=== PATIENT | female | born 1935 | race Caucasian/White ===

== ENCOUNTER 2017-10-26 08:30 | Inpatient (IN) | payer MEDICARE, OTHER ==
[~2017-10-26] VITALS: Ht 165.1 cm; Wt 111.2 kg
[~2017-10-26 08:30] MED LIST: ASPIRIN EC81 MG PO; CARVEDILOL25 MG PO; CHLORTHALIDONE25 MG PO; CLONAZEPAM0.5 MG PO; CORICIDIN HBP1 EAC2 PO; COZAAR50 MG PO; CULTURELLE1 EACH PO; ECHINACEA & GO1 EACH PO; FLAGYL500 MG PO; GLUCOPHAGE500 MG PO; KRILL OIL500 MG PO; LEVAQUIN750 MG PO; LOSARTAN POTASS50 MG PO; METFORMIN HCL500 MG PO; PROAIR HFA8.5 GM IH; SURESTEP PRO1 EA VI; VENTOLIN HFA18 GM IH; VERAPAMIL ER120 M1 PO; VERAPAMIL HCL120 MG PO; WARFARIN SODIUM5 MG PO; ZITHROMAX250 MG PO; [UNRECOGNIZED DRUG - OTHER] PO
[2017-10-26] MEDS ORDERED: FUROSEMIDE20 MG PO (08:47)
[2017-10-26] MEDS ORDERED: CLONAZEPAM0.5 MG PO (08:47)
[2017-10-26] MEDS ORDERED: IRBESARTAN150 MG PO (08:48)
--- NOTE | 2017-10-26 12:51 | NUR ---
pt arrived to floor with two family members at 1220. transferred to bed with 4PA. 2l [address] 96%. VSS. sample cup provided to collect sputum sample and signs posted on doors to collect urine and sputum sample. daily weight sign posted on door. Tele applied by MICAH. Lunch ordered for patient.
[2017-10-26] MEDS ORDERED: VERAPAMIL ER120 M1 PO (15:46)
--- NOTE | 2017-10-26 15:58 | NUR ---
PT SLEEPING COMFORTABLY SITTING UP IN BED. RUNNING IVF CONCURRENTLY WITH MAG RIDER NOW.
--- NOTE | 2017-10-26 16:36 | NUR ---
NEW ED ADMIT TODAY. ARRIVED AROUND NOON. 2L 02 VIA AK. BASELINE USES WALKER AT HOME. 2PA PIVOT TO COMMODE. INCONTINENT. ATTENDS IN PLACE. SKIN BREAKDOWN ON BUTTOCK FROM IMMOBILITY AT HOME. POOR APPETITE. 1L LR INFUSED TODAY. RECEIVED TOTAL OF 4GM MAGNESIUM RIDER. NEED SPUTUM AND URINE SAMPLE SENT. TELE [address] PRODUCTIVE HARSH COUGH. BLISTERS AND EDEMA ON BILAT LE D/T VASCULAR ISSUES.
--- NOTE | 2017-10-26 17:00 | NUR ---
THE NURSE AND I TRANSFERED HER FROM THE BED TO THE BSC AND CHANGED HER AND PUT HER BACK TO BED.
--- NOTE | 2017-10-26 18:41 | NUR ---
PT RESTING COMFORTABLY IN BED VISITING WITH FAMILY AT THIS TIME. DENIES OTHER NEEDS. NO ACUTE CHANGES. CALL LIGHT WITHIN REACH.
--- NOTE | 2017-10-26 19:00 | NUR ---
SHIFT REPORT RECEIVED. PATIENT RESTING IN BED. COARSE COUGH NOTED. PATIENT UNABLE TO COUGH UP ANY SPUTUM AT THIS TIME. O2 SAT 96%. IV BOLUS INFUSING PER ORDER, SITE WNL. IV EDUCATION PROVIDED. PATIENT DENIES ANY NEEDS AT THIS TIME. CALL LIGHT IN REACH.
--- NOTE | 2017-10-26 19:45 | NUR ---
SECOND BOLUS STARTED PER ORDERS. IV SITE WNL. PATIENT DENIES TOILETING NEEDS. AGREES TO ATTEMPT TO VOID AFTER BOLUS FINISHES IN ONE HOUR.
--- NOTE | 2017-10-26 21:00 | NUR ---
PATIENT FELT THE URGE TO USE THE BATHROOM. 2PA W/FWW UP TO BSC. PATIENT HAD 150ML URINE OUT AND SMALL BM. MD MADE AWARE OF URINE OUTPUT AND HE REQUESTED SHE BE BLADDER SCANNED. PATIENT HAS TWO AREA OF OPEN SKIN ON HER RIGHT BUTTOCK, BOTH COVERED WITH AN ALYVEN. BARRIER CREAM APPLIED, PATIENT REPORTS HER OLINDA/BOTTOM AREA IS VERY SORE. PATIENT RETURNED TO BED. ATTEMPTS TO BLADDER SCAN HER WITH ASSIST OF BODY WELDER WERE UNSUCESSFUL. MD AWARE, STATES "LETS JUST WATCH HER". IV FLUID BOLUS CONTINUES TO INFUSE, SITE WNL. LUNGS ARE COURSE THROUGHOUT, COUGH IS LOOSE BUT NOT PRODUCTIVE. PATIENT TOLERATING 2L NC AT THIS TIME. HEAD OF BED ELEVATED GREATER THAN 45 DEGREES. SCDS IN USE. ICE WATER PROVIDED. PATIENT RESTING, DENIES FURTHER NEEDS. CALL LIGHT IN REACH.
--- NOTE | 2017-10-26 22:30 | NUR ---
PATIENT'S BOLUS FINISHED. PATIENT SL BY METEOROLOGICAL AIDE.
--- NOTE | 2017-10-27 01:05 | NUR ---
IVPB OF K+ STARTED. EXPLAINED INDICATION TO PATIENT, SHE VERBILIED UNDERSTANDING. PATIENT REPORTS FEELING SORE FROM SITTING IN THE BED. SHE FREQUENTLY SLEEPS IN A RECLINER AT HOME. ASSISTED PATIENT UP TO THE BSC. ASSITSTED WITH OLINDA CARE AND BARRIER CREAM APPLIED. ASSISTED PATIENT TO THE RECLINER WHICH SHE REPORTS IS MORE COMFORTABLE AND PROVIDED PRN TYLENOL. PATIENT HAS AUDIBLE WHEEZES AND THINKINGS A NEB TREATMENT MIGHT HELP HER GET HER BREATHING UNDER CONTROL. RT CALLED TO ASSESS, NEB PROVIDED. PATIENT TOLERATING 2L NC, O2 SAT 94%. CALL LIGHT IN REACH. NO OTHER NEEDS AT THIS TIME.
--- NOTE | 2017-10-27 04:53 | NUR ---
PATIENT SLEPT ON AND OFF THROUGHOUT THE SHIFT. LOW URINE OUTPUT, ABOUT 150ML Q4HR. MD AWARE. ENCOURAGE ORAL FLUIDS. 2L NC, PRN NEBS. LOOSE COUGH. UNABLE TO COLLECT SPUTUM SAMPLE AT THIS TIME. LUNG SOUNDS ARE COARSE THROUGHOUT WITH OCCATIONAL WHEEZING. UP TO BSC, 1-2PA W/FWW. SCDS. TELE #10, IRREGULAR HR. ACCU CHECKS WMHS, ADA DIET. OPEN AREAS ON BUTTOCKS COVERED W/ALYVEN & BARRIER CREAM TO OLINDA AREA. WOUND CONSULT ORDERED.
--- NOTE | 2017-10-27 06:40 | NUR ---
PATIENT AWAKE THIS MORNING. STATES SHE SLEPT MUCH BETTER IN THE RECLINER. PATIENT UP ON STANDING SCALE FOR DAILY WT. THEN USED BSC. ALYVEN ON LOWER SITE OF OPEN AREAS WAS CHANGED. OLINDA CARE DONE. AREA DRIED AND BARRIER CREAM APPLIED. FRESH PAD IN PLACE. PATIENT RETURNED TO RECLINER. LAB IN ROOM. CALL LIGHT IN REACH.
--- NOTE | 2017-10-27 08:16 | NUR ---
MORNING ASSESSMENT AND MEDICAITONS DUE. THIS RN TO BEDSIDE. PT UP TO CHAIR EATING BREAKFAST, MINIMAL APPITITE. O2 AT 2L BY NC IN PLACE. PT REPORTS 3/10 PAIN IN HER RIGHT SIDE WITH COUGHING. SEE MAR FOR MEDIATION GIVEN. ASSESSMENT DONE. MEDICATIONS GIVEN. PT ASSISTED UP TO COMODE. WOUNDS ASSESSED, ALLEVYN INTACT. BARRIER CREAM APPLIED. PT ABLE TO VOID 100ML. PT BACK TO CHAIR. GLUCERNA PROVIDED. CALL LIGHT WITHIN REACH. SCD'S ON. NO ADITIONAL REQUESTS OR COMPALINTS AT THIS TIME.
--- NOTE | 2017-10-27 08:22 | NUR ---
CRITICAL LAB [facility]UE CALLED TO NURSING STATION. NOTIFIED DR. ADAIR.
--- NOTE | 2017-10-27 12:26 | NUR ---
THIS RN TO ROOM FOR ROUNDS WITH . ORDERS PEÑALOZA CATHETER PLACEMENT AND MEDICAITONS. PEÑALOZA PLACED PER PROTCOL. 100ML CLEAR YELLOW URINE RETURN. MEDICATIONS GIVEN ORDERED (SEE MAR). CBG - 154, 1 UNIT INSULIN GIVE. PT UP TO CHAIR FOR LUNCH. CALL LIGTH WITHIN REACH. 2L OR BY NC IN PLACE. NO ADDITIONAL REQUESTS OR COMPALINTS AT THIS TIME.
--- NOTE | 2017-10-27 13:50 | NUR ---
TYLENOL DUE. THIS RN TO BEDSIDE. PT RESTING WITH EYES CLOSED. PT AWAKENS TO VOICE AND MOVEMENT IN ROOM. TYLENOL GIVEN (SEE MAR). WATER REFILLED. PT OFFERED TO GET BACK TO BED. PT DECLINES STATING "I'M OK IN THE CHAIR." PT
[2017-10-27] MEDS ORDERED: COUMADIN5 MG PO (14:13)
--- NOTE | 2017-10-27 14:18 | NUR ---
Medications reconciled using pharmacy records and patient interview
--- NOTE | 2017-10-27 14:18 | NUR ---
pt is sitting up in chair with feet elevate and calllight in reach. pt did not need anything at the moment. BP was low will notify nurse
--- NOTE | 2017-10-27 14:21 | NUR ---
Warfarin per pharmacy. Patient to receive 5mg today. Per home dosing, she takes 5mg Sunday's and 2.5mg all other days, but as she missed yesterday's dose, a 5mg dose for today is ordered.
--- NOTE | 2017-10-27 14:50 | NUR ---
THIS RN TO ROOM TO CHECK ON PT. PT UP IN CHAIR. PT DENIES PAIN. PT STATES HER "BOTTOM IS SOAR." PT ENCOURAGED TO GET UP FOR A WALK OR TO NEW POSITIONS. PT STATES SHE IS REPOSITIONING HERSELF. NO ADDITIONAL REQUESTS OR COMPLAINTS AT THIS TIME.
--- NOTE | 2017-10-27 16:24 | NUR ---
LOGISTICS SUPERVISOR RECIVED CALLED FROM . THIS RN NOTIFIED. STATES HE BELIVES LAB DRAW RESULTS ARE IN ERROR. STAT REDRAW ORDERED. LAB NOTIFIED. LAB TECHNITIAN TO BEDSIDE. LABS REDRAWN. MD NOTIFIED OF NEW RESULTS.
--- NOTE | 2017-10-27 17:04 | NUR ---
AFTERNOON ASSESSMENT AND MEDICATIONS DUE. THIS RN TO BEDSIDE. CBG TAKEN = 125. PT DENIES PAIN. PT UP IN CHAIR AND READY FOR DINNER. ASSESSMENT DONE. PT REPORTS THAT SHE FEELS SHE CAN BREATH "BETTER." MEDICATION GIVEN. PT EATING DINNER. CALL MADELYN WALKER.
--- NOTE | 2017-10-27 17:20 | NUR ---
pt is sitting up in chair with feet elevated, pt did not need anything at the moment
--- NOTE | 2017-10-27 18:24 | NUR ---
PATIENT CALL LIGHT ON. STANDBY FWW ASSIST TO COMMODE. PATIENT HAD SMALL BOWEL MOVEMENT. DRESSINGS ON PATIENT'S RIGHT BUTTOCKS WERE CHANGED AND NEW BARRIER CREAM WAS APPLIED. THE WOUNDS WERE RED. PATIENT WAS ASSISTED BACK TO BED. PATIENT RESTING WITH AT BEDSIDE. CALL LIGHT WITHIN REACH AND BEDRAILS RAISED. NO FURTHER REQUESTS AT THIS TIME.
--- NOTE | 2017-10-27 18:31 | NUR ---
PT HERE FOR PNEUMONIA. 1PA, FWW. ADA DIET, CBG CHECKS AND SS INSULIN. DAILY WEIGHT. TELE #10. IV LASIX GIVEN TODAY. PEÑALOZA CATHETER PLACED. NEW ALLEVYN DRESSINGS APPLIED TO BUTTOX PRESSURE ULCERS X2. LABS THIS AM AND THIS PM, NEW LAB DRAW DONE AT 1640. EKG DONE TODAY. PRN TYLENOL GIVEN TODAY FOR RIGHT SIDED PAIN WITH COUGH. 2L O2 BY NC. SL, RFA. USES CALL LIGHT APPROPRIATLY.
--- NOTE | 2017-10-27 19:05 | NUR ---
SHIFT REPORT RECEIVED. PATIENT RESTING IN BED VISITING WITH HER . SHE REPORTS FEELING BETTER THIS EVENING THAN LAST, LESS COUGHING. NO NEEDS AT THIS TIME.
--- NOTE | 2017-10-27 19:45 | EKG ---
[facility] [address] [place] [address] Signed Ventricular-paced rhythm with occasional premature ventricular complexes Abnormal ECG No previous ECGs available Confirmed by GERARDO STEINBERG MD ([id number]) on 10/27/2017 7:44:25 PM Electronically Signed By: GERARDO STEINBERG MD 10/27/17 1945 PATIENT NAME: BRITT SARAVIA Electrocardiogram DATE OF : 35 PHYSICIAN: GERARDO STEINBERG MD REPORT #: [id number] REPORT IS CONFIDENTIAL AND NOT TO BE RELEASED WITHOUT AUTHORIZATION
--- NOTE | 2017-10-27 19:49 | EKG ---
[facility] [address] [facility] [address] [place] [address] Signed Atrial fibrillation with frequent ventricular-paced complexes Nonspecific intraventricular block Lateral infarct , age undetermined Abnormal ECG When compared with ECG of 26-OCT-2017 10:07, (Unconfirmed) premature ventricular complexes are no longer present Vent. rate has increased BY 6 BPM Confirmed by GERARDO STEINBERG MD ([id number]) on 10/27/2017 7:48:38 PM Electronically Signed By: GERARDO STEINBERG MD 10/27/17 1949 PATIENT NAME: BRITT SARAVIA Electrocardiogram DATE OF : 35 PHYSICIAN: GERARDO STEINBERG MD REPORT #: [id number] REPORT IS CONFIDENTIAL AND NOT TO BE RELEASED WITHOUT AUTHORIZATION
--- NOTE | 2017-10-27 20:08 | NUR ---
IV LASIX PROVIDED PER ORDERS. PATIENT VISITING WITH FRIENDS AND FAMILY. APPEARS TO BE IN GOOD SPIRITS. DENIES ANY NEEDS. DRINKS OFFERED TO VISITORS WHICH THEY DECLINED.
--- NOTE | 2017-10-27 20:45 | NUR ---
HELPED PT TO COMMODE AND BACK TO BED. PT DENIES FURTHER NEEDS AT THIS TIME. CALL LIGHT IS WITHIN REACH.
--- NOTE | 2017-10-27 21:00 | NUR ---
EVENING BLOOD GLUCOSE CHECKED, 1 UNIT INSULIN PER SS ORDERS. PO SODIUM REPLACEMENT PROVIDED PER ORDERS, PATIENT EDUCATION PROVIDED VERBALLY. PATIENT IS AAOX2. VS STABLE, TOLERATING 2L NC WITH O2 SAT 96%. COUGH HAS BECAME LESS FREQUENT, NONPRODUCTIVE BUT LOOSE SOUNDING. ENCOUAGE CPT & IS. LUNG SOUND CLEAR IN UPPER LOBES BILATERALLY, CRACKLES IN THE BASES UP TO THE MID LOBES BILATERALLY. ABD IS SOFT, NONTENDER. LARGE BM TONIGHT. APPETITE IMPROVED, NO NAUSEA. GENERALIZED EDEMA NOTED IN TOSHIA LOWER EXTREMITIES. SCDS IN USE. PATIENT SITTING IN BED WITH HOB GREATER THAN 45 DEGREES. PEÑALOZA DRAINING DARK YELLOW URINE WITH SEDIMENT, OUTPUT IMPROVED WITH LASIX. PATIENT DENIES FURTHER NEEDS.
--- NOTE | 2017-10-27 22:00 | NUR ---
PEÑALOZA EMPTIED. 800ML OUTPUT RECORDED WHICH IS MUCH IMPROVED FROM OUTPUT THROUGHOUT THE DAY. PATIENT IS RESTING IN BED. DENIES ANY NEEDS. CALL LIGHT IN REACH.
--- NOTE | 2017-10-28 02:30 | NUR ---
PEÑALOZA EMPTIED, ANOTHER 800MLS OF OUTPUT. URINE IS CLEAR YELLOW, IMPROVED IN APPEARANCE FROM PREVIOUSLY. PATIENT REPORTS FEELING "OKAY". COUGH IS REDUCED BUT STILL OCCATIONAL. RIGHT SIDED PAIN FROM MUSCLE STRAIN, PRN TYLENOL PROVIDED. PATIENT REPOSITIONED IN THE BED WITH ASSIST OF SECOND RN. DENIES FURTHER NEEDS. CALL LIGHT IN REACH.
--- NOTE | 2017-10-28 06:35 | NUR ---
PATIENT SLEPT BETTER LAST NIGHT THAN PREVIOUS. IV LASIX AT START OF SHIFT, 1925MLS URINE OUTPUT THIS SHIFT. THIS IS REFLECTED IN 2LB WEIGHT LOSS SINCE YESTERDAY. CRACKLES IN LUNGS HAVE IMPROVED, BUT FINE CRACKLES STILL NOTED IN TOSHIA BASES. 2L NC, ATTEMPTS TO TITRATE TO 1L NC. PRODUCTIVE COUGH CONTINUES. PEÑALOZA IN PLACE. 1PA UP TO BSC. FLUID RESTRICTION, ADA DIET. TELE 10, IRREGULAR HR IN THE 70-80'S. DRESSING ON BUTTOCKS CHANGED THIS AM.
--- NOTE | 2017-10-28 06:46 | NUR ---
PATIENT UP TO THE BATHROOM. LARGE STOOL. OLINDA CARE PERFORMED. NEW LAYVENS PLACED. BARRIER CREAM APPLIED. DAILY WT DONE. PATIENT RETURNED TO BED. TITRATE O2 TO 1L NC. WILL REASSESS. REVIEWED FLUID RESTRICTION WITH THE PATIENT. SHE DENIES ANY NEEDS AT THIS TIME.
--- NOTE | 2017-10-28 07:51 | NUR ---
MORNING ASSESSMENT AND MEDICATIONS DUE. THIS RN TO BEDSIDE. RT AT BEDSIDE FINISHING NEB TX. PT REQUESTED THIS NEB TREATMENT DUE TO "MY LUNGS FEEL TOO DRY OR SOMETHING." RESPIRATORY CARE EDUCATION DONE. PT VERBALIZES UNDERSTANDING. PT ON ROOM AIR. MAINTAINING O2 SATURATION ABOVE 90% WHILE RESTING BUT DROPS TO 86% WHEN TRANSFERING TO CHAIR. O2 AT 2L BY NC WILL BE USED DURING AMBULATION. PT ON 1L O2 BY NC AT THIS TIME. O2 AT 93%. PT ASSISTED UP TO COMODE FOR BM. PEÑALOZA DRAINING TO GRAVITY. PT TRANSFERS TO CHAIR. ALLEVYN REMAIN IN PLACE OVER PRESURE ULCERS. ASESSMENT DONE. MEDICATIONS GIVEN (SEE MAR). SCD'S IN PLACE. PT AWAITING BREAKFAST. NO ADDITIONAL REQUESTS OR COMPLAINTS AT THIS TIME.
--- NOTE | 2017-10-28 10:18 | NUR ---
pt asked to use bedside commode helped pt to stand and pivot to the commode. nurse wade and shell patterson are in room now and will finish up with the pt.
--- NOTE | 2017-10-28 10:38 | NUR ---
PT COMPLAINING OF PAIN AT IV SITE AFTER ABX INFUSION. PIV ASSESSED, INFLAMATION NOTED. PT CONTINUES TO REPORT PAIN WITH FLUSH. PIV DC'D PER PROTOCOL BY RADHA DE LEON. GAUZE AND COBAN APPLIED. NEW PIV INCERTED PER PROTOCOL. BLOOD REUTRN NOTED WITH IV START. PIV SL AT THIS TIME. ALCOHOL CAPS APPLIED. PT UP TO CHAIR. NO REQUESTS OR COMPLAINTS AT THIS TIME. CALL LIGHT WITHIN REACH.
--- NOTE | 2017-10-28 11:27 | NUR ---
THIS RN TO ROOM TO CHECK ON PT AND HER WORK WITH PHYSICAL THERAPY. PT UP WITH PHYSICAL THERAPY, THERAPIST REPORTS PT WAS ABLE TO AMBULATED 18 FEET AROUND ROOM. PT CONTINUES TO REPORTS SOB WITH AMBULATION AND IS RELUCTANT TO WALK OUTSIDE OF ROOM. WILL TRY AGAIN THIS AFTERNOON. PT WEANED TO ROOM AIR. O2 SATURATION REMAINING ABOE 92%. MONITORED BY THIS RN FOR 10 MINUTES TIME. PHYSICAL THERPIST STATES SPOT CHECK DURING AMBULATION SOWED PT AT 96%. PT REMAINS ON ROOM AIR. STATES SHE WANTS A NAP BEFORE LUNCH. PT UP IN CHAIR. NO ADDITIONAL REQUESTS OR COMPLAINTS. CALL LIGHT WITHIN REACH.
--- NOTE | 2017-10-28 11:56 | NUR ---
FOCUSSED ASSESSMENT AND MEDICATION DUE. THIS RN TO BEDSIDE. UP TO CHAIR, EATING LUNCH. FOCUSSED ASSESSMENT DONE. MEDICATIONS GIVEN (SEE MAR). PT REPORTS 0/10 PAIN "JUST OCCATIONALL IT HURTS WITH COUGHING." "JUST A REMINDER" PT STATES SHE DOES NOT NEED MEDICATION AT THIS TIME. PT CONTINUES ON ROOM AIR. PT CONTINUES EATING LUNCH. PT ADHERING WELL TO FLUID RESTRICTION. NO ADDITIONAL REQUESTS OR COMPLAINTS. CALL LIGHT WITHIN REACH.
--- NOTE | 2017-10-28 14:00 | NUR ---
pt resting in chair. pt needed nothing at this time. pt has call light within reach.
--- NOTE | 2017-10-28 14:33 | NUR ---
MD ORDERED REMOVAL OF PEÑALOZA CATHETER. CATHETER REMOVED PER PROTOCOL. 225 ML URINE REMOVED FROM PEÑALOZA. YELLOW WITH SOME SEDIMENT. PATIENT USING ACAPELLA. PATIENT EDUCATED ON FLUID RESTRICTION. PATIENT RESTING IN CHAIR WITH SCD'S RUNNING. CALL LIGHT IN REACH. NO COMPLAINTS OR REQUESTS AT THIS TIME.
--- NOTE | 2017-10-28 14:40 | NUR ---
THIS RN IN ROOM FOR CATHETER REMOVAL WITH RADHA DE LEON. NOTE REVIWED AND ACKNOWLEDGED. THIS RN IN AGREEMENT
--- NOTE | 2017-10-28 15:28 | NUR ---
MEDICATION DUE. PATIENT VISITING WITH FRIENDS. MEDICATION GIVEN (SEE MAR). PATIENT REQUESTED ASSISTANCE TO COMMODE. PATIENT REFUSED OFFER TO AMBULATE STATED "VISITING MADE ME TIRED". PATIENT AGREED TO AMBULATE IN 30 - 60 MINUTES. PATIENT REPORTS BREATHING IS EASIER AND SHE REPORTS USING ACAPELLA. PATIENT VOIDED 400 ML URINE WITH SMALL BM. PATIENT REPORTED FEELING "SHORT OF BREATH" AFTER RETURNING TO CHAIR. OXYGEN SAT 92% PATIENT REPORTED FEELING "RECOVERED". PATIENT RESTING IN CHAIR, SCD'S IN PLACE. CALL LIGHT WITHIN REACH.
--- NOTE | 2017-10-28 17:09 | NUR ---
AFTERNOON ASSESSMENT, NOTES AND MEDICATIONS DONE BY RADHA DE LEON. THIS RN PRESENT FOR ASSESMENTS AND MEDICATIONS. CHARTING REVIWED AND AGREED WITH.
--- NOTE | 2017-10-28 17:29 | NUR ---
RETURNED TO PATIENT ROOM SCHEDULED TO ASSIST WITH AMBULATION. PATIENT ASSISTED TO COMMODE, URINE VOIDED. PATIENT RETURNED TO CHAIR FOR SHORT REST. PATIENT AMBULATED WITH 4WW AND SBA 10 FEET OUTSIDE ROOM AND BACK TO CHAIR. OXYGEN SAT OF 95% ON ROOM AIR. PATIENT COMPLAINED OF BACK PAIN. PRN AND SCHEDULED MEDICATIONS GIVEN (SEE MAR). PATIENT ASSESSMENT DONE. PATIENT EDUCATION DONE, PATIENT VERBALIZED UNDERSTANDING. PATIENT SITTING IN CHAIR EATING, AT SIDE. SCD'S ON, CALL LIGHT WITHIN REACH.
--- NOTE | 2017-10-28 17:49 | NUR ---
pt up in chair resting with feet elevated. pt visiting. call light in reach.
--- NOTE | 2017-10-28 18:21 | NUR ---
PT HERE WITH PNEUMONIA. 1PSBA, FWW. 1000ML FLUID RESTRICTION. ADA DIET WITH CBG CHECKS AND SS INSULIN. TELE #10. PT WEANED TO ROOM AIR TODAY. ANABELA REDDING'Tuan. VOIDING QUANTITY SUFFICENT. CUMADIN GIVEN TODAY. PRN TYLENOL GIVEN FOR COUGH AND BACK PAIN. ALLEVYN REMAIN IN PLACE OVER R BUTTOX WOUNDS. ENCOURAGE AMBULATION TOLDERATED. ACCAPELLA AND IS USE ENCOURAGED. PT USING CALL LIGHT APPROPRAITLY.
--- NOTE | 2017-10-28 19:10 | NUR ---
RECEIVED REPORT FROM RADHA MCKEON. PT LAYING IN BED. 1 PERSON SBA WITH FWW. ON TELE 10. PT HAS 2 ULCERS ON RIGHT BUTTOCKS, DRESSINGS INTACT. ON A ADA DIET WITH 1000 ML FLUID RESTRICTION. TITRATED TO ROOM AIR TODAY FROM 2 LITERS.
--- NOTE | 2017-10-28 20:59 | NUR ---
ROUNDED CHARGE. PATIENT IS RESTING IN BED. PATIENT DENIES ANY COMMENTS, QUESTIONS OR CONCERNS AT THIS TIME. CALL LIGHT IN REACH.
--- NOTE | 2017-10-28 22:33 | NUR ---
ASSESSMENT COMPLETE. DIMINISHED LUNG SOUNDS LEFT LOWER LOBE. MILD PITTING EDEMA BILATERALLY IN FEET, PULSES WEAK BLE. IV SALINE LOCKED WNL. UP TO BEDSIDE COMMODE WITH SBA AND FWW, VOID AND BM, PT TOLERATED WELL ON ROOM AIR, DENIES SOB. CO OF PAIN IN RIBS DUE TO COUGHING, /. EDUCATED ON PRN MEDICATION, PT DECLINES HEAT PACK. ASSISTED TO REPOSITION, SCD'S ON AND CALL LIGHT IN REACH.
--- NOTE | 2017-10-28 23:05 | NUR ---
PRN PAIN MEDICATIONS GIVEN FOR PAIN 05/26. EDUCATED PT ON FLUID RESTRICTION.
--- NOTE | 2017-10-28 23:22 | NUR ---
RESPONDED TO CALL LIGHT. PT REQUESTING A BREATHING TREATMENT. RT CALLED AND WILL BE COMING TO FLOOR TO COMPLETE TREATMENT.
--- NOTE | 2017-10-29 00:57 | NUR ---
RESPONDED TO CALL LIGHT. PT QUESTIONED IF THERE WAS ANYTHING ELSE ORDERED THAT COULD HELP HER BREATHE EASIER. CHECKED O2 STATS, 93% ON ROOM AIR.
--- NOTE | 2017-10-29 01:10 | NUR ---
CALL LIGHT ANSWERED, PT C/O SOB, SATURATIONS WNL ON RA. LUNGS COARSE ON EXPIRATION THROUGHOUT, DIMINISHED LLL. BREATHING IS NON-LABORED. PT DEMONSTRATES IS AND CPT USE, COUGHING, NON-PRODUCTIVE. CALL LIGHT IN REACH. RT DANN PHONED, TO ASSESS PT.
--- NOTE | 2017-10-29 01:34 | NUR ---
PHONE CALL TO MD, NOTIFIED OF PT ANXIETY REGARDING BREATHING, ORDER FOR ONE TIME MUCINEX DOSE, REPEATED BACK.
--- NOTE | 2017-10-29 04:04 | NUR ---
PT SLEEPING IN BED. BREATHING EVEN AND UNLABORED. CALL LIGHT IN REACH.
--- NOTE | 2017-10-29 06:04 | NUR ---
ASSESSMENT COMPLETE. CRACKLES IN BILATERAL LOWER LOBES. PT C.O. COUGHING AND NOT BEING ABLE TO SLEEP. PT STATES, "MUSINEX DID NOT HELP". PT DENIES PAIN AT THIS TIME. PT IS SITTING UP IN BED WITH CALL LIGHT IN LAP. GIVEN ICE WATER, NO FURTHER NEEDS AT THIS TIME.
--- NOTE | 2017-10-29 06:14 | NUR ---
PT SLEPT POORLY THROUGHOUT NIGHT WITH PERSISTENT COUGH. PT WAS ANXIOUS AND RECIEVED PRN PAIN MEDICATIONS AND RESPIRATORY TREATMENTS. O2 SATURATION SPOT CHECKS WERE CONSISTENTLY IN THE MID 90'S. BILATERAL LOWER LOBES HAVE CRACKLES AND ARE DIMINISHED. PT HAS MINIMAL BILATERAL EDEMA ON HER FEET AND SHINS. PT USED CALL LIGHT APPROPRIATELY. PT DID NOT HAVE C.O PAIN THIS MORNING AND DENIED NEEDING PRN PAIN MEDS. ON TELE 10. SBA LEEW.
--- NOTE | 2017-10-29 08:15 | NUR ---
PATIENT UP IN CHAIR. WARM WASHCLOTH PROVIDED. LINENS CHANGED. NO FURTHER NEEDS AT THIS TIME. CALL LIGHT IN REACH.
--- NOTE | 2017-10-29 08:52 | NUR ---
PT CALLED FOR ASSISTANCE TO RESTROOM. AMB 1PA WITH WALKER TO BATHROOM. VOIDED WITHOUT DIFFICULTY. PT AMB TO RECLINER AFTERWARDS TO EAT BREAKFAST. LINENS CHANGED BY SERGIO OBRIEN. PT DENIES PAIN OR NAUSEA, STATES "I'M TIRED OF THIS COUGH." NO OTHER CONCERNS. LUNGS COURSE WITH SOME EXPIRATORY WHEEZES NOTED, REGULAR MOIST COUGH WELL. PT DENIES ANY DIFFICULTY BREATHING OR SOB. 2+ PITTING EDEMA OF BILATERAL FEET AND 1+ OF BILATERAL LOWER LEGS. PT ALERT AND ORIENTED. CALL LIGHT WITHIN REACH.
--- NOTE | 2017-10-29 10:00 | NUR ---
PATIENT SITTING IN RECLINER, VISITING. SHE JUST ORDERED LUNCH. PATIENT SAID SHE IS EATING A LITTLE BETTER NOW. FOR THE PAST 3 WEEKS SHE DIDN'T CARE IF SHE ATE OR NOT. SHE AND HER EAT A FRIED EGG AND PIECE OF TOAST FOR BREAKFAST. I EXPLAINED TO HER WHAT FOODS CONTAIN PROTEIN AND PROTEIN ALONG WITH GOOD QUALITY CALORIES WILL HELP THE WOUND ON HER BACKSIDE HEAL. SHE DIDN'T KNOW THAT. SHE LIKES MILK, YOGURT, CHEESE. THEY EAT A LOT OF CHICKEN AND HAMBURGER. I SUGGESTED SALMON, TUNA, AND TURKEY FOR OTHER HIGH QUALITY PROTEIN CHOICES. I REMINDED HER TO EAT PROTEIN FOODS SPREAD THROUGHOUT THE DAY, NOT ALL AT ONCE. SHE SAID SHE WILL KEEP THAT IN MIND. WILL CONTINUE TO MONITOR.
--- NOTE | 2017-10-29 10:32 | NUR ---
PT AMB A SHORT DISTANCE IN HALLWAY WITH P.T. AND WALKER, REQUIRED A SHORT BREAK D/T SOB. AMB BACK TO ROOM AND SITTING UP IN RECLINER. CALL LIGHT WITHIN REACH.
[2017-10-29] MEDS ORDERED: CEFDINIR300 MG PO (12:30)
[2017-10-29] MEDS ORDERED: VENTOLIN HFA18 GM INH (12:31)
--- NOTE | 2017-10-29 12:45 | NUR ---
PT SBA WITH WALKER BACK TO RECLINER FROM RESTROOM TO FINISH EATING LUNCH. PT REPORTS A LOW APPETITE BUT EATING A SMALL AMOUNT OF LUNCH AT THIS TIME. DR. YOUNG IN TO [place] QUARLES ON PT. CALL LIGHT WITHIN REACH.
--- NOTE | 2017-10-29 13:54 | NUR ---
PT PREPARING FOR DC TODAY. SHE BEGAN TO INFORM ME OF HOW POSITIVE HER STAY HAS BEEN HERE AT [facility] COMPARED TO PREVIOUS TIME OVER 4 YRS AGO. SHE SAID SHE FELT "WORSE" WHEN SHE WAS DC'D THAN DURING ADMISSION. PREVIOUS, STAFF HAD BEEN VERY UNKIND, SHOWING LITTLE COMPASSION AND INTEGRITY REGARDING THE CARE PT WAS THEN RECEIVING. IT WAS IF STAFF REALLY DIDN'T WANT TO BE HERE AND PERCEPTION BY PT THAT STAFF DIDN'T CARE WHETHER SHE IMPROVED OR NOT. THIS TIME ENTIRELY A DIFFERENT EXPERIENCE. WELL CARED FOR. THANKED PT FOR HER HONESTY, EXTENDED A BLESSING. WILL FOLLOW NEEDED
--- NOTE | 2017-10-29 14:00 | NUR ---
PATIENT SITTING IN CHAIR TALKING TO FAMILY IN ROOM. CALL LIGHT IN REACH. NO FURTHER NEEDS AT THIS TIME.
--- NOTE | 2017-10-29 15:00 | NUR ---
IV REMOVED, CATH TIP INTACT, INSERTION SITE WITHOUT REDNESS OR INFLAMMATION. PT GOT DRESSED FOR DC WITH ASSIST FROM FAMILY. CALL LIGHT WITHIN REACH.
== END 2017-10-29 15:21 | disposition home or self-care (01) | DRG 193 ==
LOC: ED 08:30 → FBC 11:43 → MS 11:52
PROVIDERS: ADMIT Student in an Organized Health Care Education/Training Program
DX: J18.9 Pneumonia, unspecified organism (principal); J96.01 Acute respiratory failure with hypoxia; N17.9 Acute kidney failure, unspecified; E87.1 Hypo-osmolality and hyponatremia; I10 Essential (primary) hypertension; I48.91 Unspecified atrial fibrillation; Z95.0 Presence of cardiac pacemaker; E11.9 Type 2 diabetes mellitus without complications; F41.9 Anxiety disorder, unspecified; E83.42 Hypomagnesemia; L89.92 Pressure ulcer of unspecified site, stage 2
CPT/HCPCS: 36415; 71045; 80048; 80053; 81001; 83605; 83735; 83880; 84300; 84484; 85025; 85610; 85730; 87899; 93005; 93010; 94640; 94667; 94668; 94760; 96374; 96375; 97110; 97116; 97162; 97165; 97535; 99285; G8978; G8979; J0696; J1815; J3475; J3480; J7030; J7120

== ENCOUNTER 2019-08-25 19:19 | Emergency (ER) | payer MEDICARE, OTHER ==
[~2019-08-25] VITALS: Ht 162.6 cm; Wt 97.5 kg
[~2019-08-25 19:19] MED LIST changes: +ARTHRITIS PAIN650 MG PO; +AVAPRO75 MG PO; +CARVEDILOL12.5 MG PO; +CEFDINIR300 MG PO; +COUMADIN5 MG PO; +FUROSEMIDE20 MG PO; +IRBESARTAN150 MG PO; +IRBESARTAN75 MG PO; +KLOR-CON M1010 MEQ PO; +KLOR-CON M2020 MEQ PO; +VENTOLIN HFA18 GM INH
[2019-08-25] MEDS ORDERED: LASIX20 MG PO (19:55)
[2019-08-25] MEDS ORDERED: AVAPRO75 MG PO (19:56)
[2019-08-25] MEDS ORDERED: POTASSIUM CHLO10 ME1 PO (19:57)
[2019-08-25] MEDS ORDERED: HYDRALAZINE HCL10 MG PO (19:59)
[2019-08-25] MEDS ORDERED: COREG25 MG PO (19:59)
[2019-08-25] MEDS ORDERED: GLUCOPHAGE500 MG PO (20:00)
[2019-08-25] MEDS ORDERED: CLONAZEPAM0.5 MG PO (20:00)
[2019-08-25] MEDS ORDERED: VENTOLIN HFA18 GM INH (20:01)
[2019-08-25] MEDS ORDERED: COUMADIN5 MG PO (20:01)
[2019-08-25] MEDS ORDERED: CRESTOR5 MG PO (20:03)
[2019-08-25] MEDS ORDERED: AMLODIPINE BESYL5 MG PO (20:04)
--- NOTE | 2019-08-26 06:58 | EKG ---
[facility] [address] [place] [address] Signed Ventricular-paced rhythm Abnormal ECG When compared with ECG of 27-OCT-2017 12:36, Vent. rate has decreased BY 5 BPM Confirmed by MAVIS YOUNG MD ([id number] on 08/26/2019 6:58:21 AM Electronically Signed By: MAVIS YOUNG MD 08/26/19 0658 PATIENT NAME: CYNTHIA SARAVIA Electrocardiogram DATE OF : 35 PHYSICIAN: MAVIS YOUNG MD REPORT #: [id number] REPORT IS CONFIDENTIAL AND NOT TO BE RELEASED WITHOUT AUTHORIZATION
== END 2019-08-25 22:25 | disposition home or self-care (01) ==
LOC: ED 19:19
DX: I11.0 Hypertensive heart disease with heart failure (principal); I50.9 Heart failure, unspecified; E11.9 Type 2 diabetes mellitus without complications; I48.91 Unspecified atrial fibrillation; Z88.8 Allergy status to other drugs, medicaments and biological substances; Z79.899 Other long term (current) drug therapy
CPT/HCPCS: 71045; 80053; 83735; 83880; 84484; 85025; 85610; 85730; 93005; 93010; 96374; 96376; 99285-25; J1940

== ENCOUNTER 2020-05-31 09:52 | Emergency (ER) | payer MEDICARE, OTHER ==
[~2020-05-31] VITALS: Ht 162.6 cm; Wt 97.5 kg
[~2020-05-31 09:52] MED LIST changes: +AMLODIPINE BESYL5 MG PO; +COREG25 MG PO; +CRESTOR5 MG PO; +HYDRALAZINE HCL10 MG PO; +LASIX20 MG PO; +POTASSIUM CHLO10 ME1 PO
--- NOTE | 2020-05-31 17:24 | EKG ---
[facility] [address] [facility] [place] [address] Signed Ventricular-paced rhythm Abnormal ECG When compared with ECG of 25-AUG-2019 19:40, Vent. rate has increased BY 4 BPM Confirmed by ANTONIO ADAIR DO ([id number] on 05/31/2020 5:24:03 PM Electronically Signed By: ANTONIO ADAIR DO 05/31/20 1724 PATIENT NAME: CYNTHIA SARAVIA Electrocardiogram DATE OF : 35 PHYSICIAN: ANTONIO ADAIR DO REPORT #: [id number] REPORT IS CONFIDENTIAL AND NOT TO BE RELEASED WITHOUT AUTHORIZATION
== END 2020-05-31 12:14 | disposition home or self-care (01) ==
LOC: ED 09:52
DX: I11.0 Hypertensive heart disease with heart failure (principal); I50.9 Heart failure, unspecified; E11.9 Type 2 diabetes mellitus without complications; I48.91 Unspecified atrial fibrillation; Z20.822 Contact with and (suspected) exposure to COVID-19; Z88.8 Allergy status to other drugs, medicaments and biological substances; Z79.899 Other long term (current) drug therapy; Z79.84 Long term (current) use of oral hypoglycemic drugs; Z79.01 Long term (current) use of anticoagulants
CPT/HCPCS: 71045; 80053; 83880; 84484; 85025; 93005; 93010; 99285-25; C9803; U0003

== ENCOUNTER 2022-06-21 19:18 | Emergency (ER) | payer MEDICARE, OTHER ==
[~2022-06-21] VITALS: Ht 154.9 cm; Wt 97.5 kg
[~2022-06-21 19:18] MED LIST changes: +CEPHALEXIN250 M1 PO; +MONUROL3 GM PO
[2022-06-21] MEDS ORDERED: MAGNESIUM OXID250 MG PO (20:39)
[2022-06-21] MEDS ORDERED: LOMOTIL TABLET1 EACH PO (20:39)
== END 2022-06-21 21:15 | disposition home or self-care (01) ==
LOC: ED 19:18
DX: U07.1 COVID-19 (principal); E86.0 Dehydration; E83.42 Hypomagnesemia; E11.9 Type 2 diabetes mellitus without complications; I48.91 Unspecified atrial fibrillation; I11.0 Hypertensive heart disease with heart failure; I50.9 Heart failure, unspecified; Z88.8 Allergy status to other drugs, medicaments and biological substances; Z79.899 Other long term (current) drug therapy; Z79.84 Long term (current) use of oral hypoglycemic drugs; Z79.01 Long term (current) use of anticoagulants
CPT/HCPCS: 36415; 51701; 80053; 81003; 83735; 85025; 87502; 99285-25; C9803; J7121; U0003